=== PATIENT | female | born 1940 | race Caucasian/White ===

== ENCOUNTER 2019-04-20 10:32 | Emergency (ER) | payer MEDICARE, OTHER ==
[~2019-04-20] VITALS: Ht 175.3 cm; Wt 85.7 kg
--- OUTSIDE RECORDS SUMMARY | ~2019-04-20 | XMS | Clinical Summary ---
Demographics + + + | Address | [address] | | | [place] [address] | + + + | Home Phone | | + + + | Preferred Language | Unknown | + + + | Marital Status | | + + + | Latter-Day Affiliation | Unknown | + + + | Race | Unknown | + + + | Ethnic Group | Unknown | + + + Author + + + | Author | [facility] | | | and [place] | + + + | Organization | [facility] | | | and [place] | + + + | Address | Unknown | + + + | Phone | Unavailable | + + + Support + + +---------+ + | Name | Relationship | Address | Phone | + + +---------+ + | Caesar Sparrow | ECON | Unknown | | + + +---------+ + | [place],Martha | ECON | Unknown | | + + +---------+ + Care Team Providers + +------+ + | Care Reweaver Name | Role | Phone | + +------+ + | Unknown, Doctor | PP | | + +------+ + Allergies Not on File Medications Not on file Active Problems Not on file Social History + +-------+ +--------+------+ | Tobacco Use | Types | Packs/Day | Years | Date | | | | | Used | | + +-------+ +--------+------+ | Never Assessed | | | | | + +-------+ +--------+------+ + + + | Sex Assigned at | Date Recorded | | | | + + + | Not on file | | + + + + + + + | Job Start Date | Occupation | Industry | + + + + | Not on file | Not on file | Not on file | + + + + + + + + | Travel History | Travel Start | Travel End | + + + + + + | No recent travel history available. | + + Plan of Treatment + + + + + | Health Maintenance | Due Date | Last Done | Comments | + + + + + | Vaccine: | | | | | Dtap/Tdap/Td (1 - | 0 | | | | Tdap) | | | | + + + + + | Vaccine: Zoster (1 | | | | | of 2) | 1 | | | + + + + + | Vaccine: | | | | | Pneumococcal 65+ | 6 | | | | Low/Medium Risk (1 | | | | | of 2 - PCV13) | | | | + + + + + | Vaccine: Influenza | | | | | (Season Ended) | 9 | | | + + + + + Results Not on filefrom Last 3 Months Insurance + +--------+ +--------+ +---------+--------+ | Payer | Benefi | Subscriber | Effect | Phone | Address | Type | | | t Plan | ID | chantal | | | | | | / | | Dates | | | | | | Group | | | | | | + +--------+ +--------+ +---------+--------+ | MEDICARE | MEDICA | [id number] | 05/29/20 | [phone] | | Medica | | | RE | | 06-Pre | 5 | | re | | | PART A | | sent | | | | | | AND B | | | | | | + +--------+ +--------+ +---------+--------+ | [employer] [place] | [place] | [id number] | | [phone] | | Indemn | | | OF | | 011-Pr | 0 | | ity | | | [place] | | esent | | | | | | MDCR | | | | | | | | SUPPL | | | | | | + +--------+ +--------+ +---------+--------+ + +--------+ +--------+ + + | Guarantor Name | Accoun | Relation to | Date | Phone | Billing Address | | | t Type | Patient | of | | | | | | | | | | + +--------+ +--------+ + + | Courtney Sparrow | Person | Self [birth year] | [address] [place] [address] | | | al/Fam | | 1940 | [phone] | [place] | | | [place] | | | [address] (Home) | [phone] | + +--------+ +--------+ + + Advance Directives Patient has advance care planning documents on file. For more information, please contact:[facility] [place] [address]"
--- OUTSIDE RECORDS SUMMARY | ~2019-04-20 | XMS | Clinical Summary ---
Demographics + + + | Address | [address] | | | [place] [address] | + + + | Home Phone | | + + + | Preferred Language | Unknown | + + + | Marital Status | | + + + | Yazidism Affiliation | Unknown | + + + | Race | Unknown | + + + | Ethnic Group | Unknown | + + + Author + + + | Author | [facility] | | | and [place] | + + + | Organization | [facility] | | | and [place] | + + + | Address | Unknown | + + + | Phone | Unavailable | + + + Support + + +---------+ + | Name | Relationship | Address | Phone | + + +---------+ + | Caesar Sparrow | ECON | Unknown | | + + +---------+ + | [place],Martha | ECON | Unknown | | + + +---------+ + Care Team Providers + +------+ + | Care Water Leak Repairer Name | Role | Phone | + [...] +--------+ +---------+--------+ | MEDICARE | MEDICA | [id number] | 05/29/20 | [phone] | | Medica | | | RE | | 06-Pre | 5 | | re | | | PART A | | sent | | | | | | AND B | | | | | | + +--------+ +--------+ +---------+--------+ | [employer] [place] | [place] | [id number] | | [phone] | | Indemn | | | OF | | 011-Pr | 0 | | ity | | | [place] | | esent | | | | [...] Self | [birth year] | [address] [place] [address] | | | al/Fam | | 1940 | [phone] | [place] | | | [place] | | | [address] (Home) | [phone] | + +--------+ +--------+ + + Advance Directives Patient has advance care planning documents on file. For more information, please contact:[facility] [place] [address]"
[~2019-04-20 10:32] MED LIST: ALEVE220 M1 PO; AMITRIPTYLINE H25 MG PO; VITAMIN B COMP1 EACH PO
[2019-04-20] MEDS ORDERED: AMITRIPTYLINE H10 MG PO (10:50)
--- NOTE | 2019-04-20 15:32 | EKG ---
[facility] [address] [facility] [place] [address] Signed Normal sinus rhythm Normal ECG No previous ECGs available Confirmed by JASMIN HERNANDEZ MD ([id number]) on 04/20/2019 3:32:38 PM Electronically Signed By: JASMIN HERNANDEZ MD 04/20/19 1532 PATIENT NAME: ABNER BEASLEY Electrocardiogram DATE OF : 42 PHYSICIAN: JASMIN HERNANDEZ MD REPORT #: [id number] REPORT IS CONFIDENTIAL AND NOT TO BE RELEASED WITHOUT AUTHORIZATION
== END 2019-04-20 13:15 | disposition home or self-care (01) ==
LOC: ED 10:32
DX: S06.0X0A Concussion without loss of consciousness, initial encounter (principal); Z87.891 Personal history of nicotine dependence; Z88.8 Allergy status to other drugs, medicaments and biological substances; Z88.5 Allergy status to narcotic agent; W01.10XA Fall on same level from slipping, tripping and stumbling with subsequent striking against unspecified object, initial encounter
CPT/HCPCS: 70450; 72125; 80053; 85025; 93005; 93010; 99284-25

== ENCOUNTER 2020-05-21 11:52 | Day surgery (SDC) | payer MEDICARE, OTHER ==
[~2020-05-21] VITALS: Ht 172.7 cm; Wt 86.5 kg
[~2020-05-21 11:52] MED LIST changes: +AMITRIPTYLINE H10 MG PO; +COMBIVENT RESPIM4 GM INH; +OMEPRAZOLE20 MG PO; +SPIRIVA18 MCG INH; +VENTOLIN HFA18 GM INH; +[UNRECOGNIZED DRUG - CODE] IM
--- NOTE | 2020-05-21 13:13 | NUR ---
05/21/20 1313 Diana Edwards 1310-PATIENT ARRIVED TO PACU ON 2L NC DROWSY AROUSES TO VERBAL STIMULI DENIES PAIN OR NAUSEA. LAYING LEFT LATERAL. ABDOMEN SOFT. IVF INFUSING. PATIENT DOZES BACK TO SLEEP. RR EVEN
--- NOTE | 2020-05-21 14:21 | OR ---
[facility] [address] [place], [place] [address] Signed DATE OF OPERATION: 05/21/2020 SURGEON: Justin Stevens MD PREOPERATIVE DIAGNOSIS: Longstanding chronic gastroesophageal reflux. POSTOPERATIVE DIAGNOSIS: Mild chronic distal esophagitis and small hiatal hernia, reactive airways disease, uncertain if related to reflux. PROCEDURE: Esophagogastroduodenoscopy with biopsy. ANESTHESIA: Intravenous sedation fentanyl 100 mcg, Versed 2 mg. INDICATION: This 79-year-old white woman is a patient of ROBYN Peace. Notably, her in the past few years from esophageal cancer. The patient has longstanding reflux symptoms and has undergone upper endoscopy by Dr. Aguayo, a license inspector in [place] confirming probable esophagitis. The patient currently takes omeprazole 40 mg daily. She also has a reactive airways disease for which she takes a Combivent inhaler. She has no associated dysphagia, hematemesis, and no other esophageal symptoms currently. She does have sleep apnea for which she uses a CPAP mask. She is admitted at this time to undergo upper endoscopy to better characterize the extent of her reflux problem and in particular to assess for Ovalle's epithelium. The risks of bleeding, infection, and perforation related to upper endoscopy was reviewed with her. She understands and wished to proceed. FINDINGS: There was a somewhat poor flap valve consistent with small hiatal hernia. Additionally, she had chronic esophagitis and a somewhat cobblestone appearance of her mucosa, particularly in the distal 1/2 of the esophagus. She may have small amount of Ovalle's, but rather small indeed. Photographs were taken and biopsies obtained. CLOtest was negative 20 minutes post procedure. DESCRIPTION OF PROCEDURE: The patient was brought to the endoscopy suite and given topical lidocaine spray anesthesia. She was placed in lateral decubitus position, given intravenous sedation to Electronically Signed By: JUSTIN STEVENS MD 05/21/20 1421 PATIENT NAME: ABNER BEASLEY OPERATIVE REPORT DATE OF : 42 REPORT #: [id number] PHYSICIAN: JUSTIN STEVENS MD PCP: ALEXANDRA DEL RIO REPORT IS CONFIDENTIAL AND NOT TO BE RELEASED WITHOUT AUTHORIZATION [facility] [address] [place], [place] [address] Signed the point of slurred speech and nystagmus. An Olympus video upper endoscope was passed in the hypopharynx. The vocal cords were visualized and reasonably normal. Scope was advanced to the esophagus throughout its length, it showed a somewhat cobblestone appearance of the distal half and normal mucosa otherwise. Scope was advanced to the stomach, which was insufflated with air. There was some amount of bilious fluid. The antral folds were normal. The pylorus was normal. Scope was passed through into the duodenum, which was normal. Biopsies were obtained of the duodenum. The scope was withdrawn and biopsies were taken of the antrum for both JOSELIN and pathologic testing as well as the proximal stomach for biopsy as well. The scope was then withdrawn to the distal esophagus and careful inspection showed no evidence of Ovalle's epithelium proper, though there was one island of mucosa that would be suggestive of it. This was biopsied as well. Multiple biopsies were taken of the distal esophagus. The scope was withdrawn and a cobblestone appearing midesophagus was noted not particularly neoplastic, but unusual in appearance otherwise. This was biopsied as well. The scope was then removed and the patient was taken to the recovery room in good condition. CONCLUSION DIAGNOSIS: Chronic esophagitis without obvious Ovalle's epithelium; mild cobblestone appearance of mucosa in midesophagus. PLAN: Recommend continued use of omeprazole as is. We will see her back in the office in a few weeks and review her pathology reports and options of management. MD MARLO Zafar/MODL /[id number] cc: ROBYN Peace Copies: ALEXANDRA DEL RIO ~ Electronically Signed By: JUSTIN STEVENS MD 05/21/20 1421 PATIENT NAME: ABNER BEASLEY OPERATIVE REPORT DATE OF : 42 REPORT #: [id number] PHYSICIAN: JUSTIN STEVENS MD PCP: ALEXANDRA DEL RIO REPORT IS CONFIDENTIAL AND NOT TO BE RELEASED WITHOUT AUTHORIZATION
--- NOTE | 2020-05-22 10:57 | PATH ---
[facility] [address] [place], [place] [address] Signed SPECIMEN(S): A DUODENUM SPECIMEN(S): B ANTRUM SPECIMEN(S): C PROXIMAL STOMACH SPECIMEN(S): D GE JUNCTION SPECIMEN(S): E MIDDLE ESOPHAGUS SPECIMEN SOURCE: A. DUODENUM B. ANTRUM C. PROXIMAL STOMACH D. GE JUNCTION E. MIDDLE ESOPHAGUS CLINICAL HISTORY: Reflux. MICROSCOPIC DESCRIPTION: Histologic sections of all submitted blocks are examined by light microscopy. These findings, together with the gross examination, support the pathologic diagnosis. FINAL PATHOLOGIC DIAGNOSIS: A. Duodenum, biopsy: - Duodenal mucosa with no histopathologic abnormality. - Negative for increased intraepithelial lymphocytes. - Negative for dysplasia or malignancy. B. Stomach, antrum, biopsy: - Antral/oxyntic mucosa with mild mucosal capillary congestion. - Negative for Helicobacter organisms on HE stain. - Negative for dysplasia or malignancy. C. Stomach, proximal, biopsy: - Oxyntic mucosa with mild mucosal capillary congestion. - Negative for Helicobacter organisms on HE stain. - Negative for dysplasia or malignancy. D. Gastroesophageal junction, biopsy: - Squamous mucosa with chronic inflammation and reactive epithelial changes, consistent with reflux esophagitis. - Fragment of oxyntic type mucosa with no histopathologic abnormality. - Negative for intestinal metaplasia, dysplasia, or malignancy. E. Esophagus, middle, biopsy: - Squamous mucosa with minimal chronic inflammation. PATIENT NAME: ABNER BEASLEY PATHOLOGY DATE OF : 42 REPORT #: [id number] PHYSICIAN: LAURA ASTUDILLO PCP: ALEXANDRA DEL RIO REPORT IS CONFIDENTIAL AND NOT TO BE RELEASED WITHOUT AUTHORIZATION [facility] [address] [place], [place] [address] Signed - Negative for intestinal metaplasia, dysplasia, or malignancy. NAL:cml:C2NR GROSS DESCRIPTION: Five specimens are received in five containers, labeled "MR." A. The specimen, labeled "MR, 1," and designated on the requisition "duodenum," is received in formalin and consists of two gonzalez soft tissue fragments that measure 0.3 cm in greatest dimension. The specimen is entirely submitted in cassette (A1). B. The specimen, labeled "MR, 2," and designated on the requisition "antrum," is received in formalin and consists of two gonzalez soft tissue fragments that measure 0.3 cm in greatest dimension. The specimen is entirely submitted in cassette (B1). C. The specimen, labeled "MR, 3," and designated on the requisition "proximal stomach," is received in formalin and consists of two gonzalez soft tissue fragments that measure 0.3 cm in greatest dimension. The specimen is entirely submitted in cassette (C1). D. The specimen, labeled "MR, 4," and designated on the requisition "GE junction," is received in formalin and consists of four gonzalez soft tissue fragments that measure 0.4 cm in greatest dimension. The specimen is entirely submitted in cassette (D1). E. The specimen, labeled "MR, 5," and designated on the requisition "middle esophagus," is received in formalin and consists of four gonzalez soft tissue fragments that measure 0.4 cm in greatest dimension. The specimen is entirely submitted in cassette (E1). AT (under the direct supervision of a pathologist) The Gross Description was prepared using a voice recognition system. The report was reviewed for accuracy; however, sound-alike word errors, addition and/or deletions may occur. If there is any question about this report, please contact Client Services. PERFORMING LABORATORY: The technical component was performed by [employer], [address] [place] [id number] ([employer] Controller: Gudelia Hastings MD; CLIA# [id number]). Professional interpretation was performed by [facility], [address] [address] (CLIA# [id number]). Diagnostician: Debo Tolbert MD Pathologist Electronically Signed 05/22/2020 PATIENT NAME: ABNER BEASLEY PATHOLOGY DATE OF : 42 REPORT #: [id number] PHYSICIAN: LAURA PATHOLOGY PCP: ALEXANDRA DEL RIO REPORT IS CONFIDENTIAL AND NOT TO BE RELEASED WITHOUT AUTHORIZATION [facility] [address] [place], [place] [address] Signed Copies: ~ PATIENT NAME: ABNER BEASLEY PATHOLOGY DATE OF : 42 REPORT #: [id number] PHYSICIAN: LAURA ASTUDILLO PCP: ALEXANDRA DEL RIO REPORT IS CONFIDENTIAL AND NOT TO BE RELEASED WITHOUT AUTHORIZATION
== END 2020-05-21 14:00 | disposition home or self-care (01) ==
LOC: OPS 11:52 → DS 14:00 → OPS 14:00
PROVIDERS: Surgery
PROC: 0DB78ZX Excision of Stomach, Pylorus, Via Natural or Artificial Opening Endoscopic, Diagnostic (ICD-10-PCS; 2020-05-21)
PROC: 0DB68ZX Excision of Stomach, Via Natural or Artificial Opening Endoscopic, Diagnostic (ICD-10-PCS; 2020-05-21)
PROC: 0DB28ZX Excision of Middle Esophagus, Via Natural or Artificial Opening Endoscopic, Diagnostic (ICD-10-PCS; 2020-05-21)
PROC: 0DB48ZX Excision of Esophagogastric Junction, Via Natural or Artificial Opening Endoscopic, Diagnostic (ICD-10-PCS; 2020-05-21)
PROC: 0DB98ZX Excision of Duodenum, Via Natural or Artificial Opening Endoscopic, Diagnostic (ICD-10-PCS; principal; 2020-05-21 12:30)
DX: K20.9 Esophagitis, unspecified (principal); K21.9 Gastro-esophageal reflux disease without esophagitis; K44.9 Diaphragmatic hernia without obstruction or gangrene; J45.909 Unspecified asthma, uncomplicated; Z79.899 Other long term (current) drug therapy
CPT/HCPCS: 99153; G0500; J0690; J2250; J3010; J7121